=== PATIENT | female | born 1995 | race Caucasian/White ===

== ENCOUNTER 2019-07-18 01:20 | Emergency (ER) | payer BC ==
[~2019-07-18] VITALS: Ht 157.5 cm; Wt 43.1 kg
--- NOTE | 2019-07-18 01:55 | NUR ---
SEEN AND EXAMINED BY SABRINA HAIRSTON AT BEDSIDE .
--- NOTE | 2019-07-18 02:06 | NUR ---
Patient discharged to home in stable conditon. Written and verbal after care instructions given. Patient verbalizes understanding of instructions.patient [email or web address].v/[id number] wnl .
[2019-07-18 02:09] VITALS: BP 125/85
== END 2019-07-18 02:10 | disposition home or self-care (01) ==
LOC: ER 01:29
DX: H10.9 Unspecified conjunctivitis (principal); F41.9 Anxiety disorder, unspecified
CPT/HCPCS: A4663